=== PATIENT | female | born 1935 | race Caucasian/White ===

== ENCOUNTER → 2017-09-08 11:42 | Emergency (ER) | payer MEDICARE, MEDICAID ==
[2017-09-08 12:27] LABS: ABS Basophils 0.1 10^3/ul (0-0.2); ABS Eosinophils 0.1 10^3/ul (0-0.6); ABS Lymphocytes 0.5 10^3/ul (1.0-4.8); ABS Monocytes 0.7 10^3/ul (0-0.8); ABS Neutrophils 10.4 10^3/ul (1.5-7.7); ABS Nucleated RBC 0 10^3/ul; Eosinophil % 1.2 % (0-6); Hematocrit 37 % (35-47); Hemoglobin 11.3 g/dl (12.0-16.0); Lymphocyte % 3.9 % (25-47); Mean Corpuscular HGB Conc 31 g/dl (31-36); Mean Corpuscular Hemoglobin 24 pg (27-31); Mean Corpuscular Volume 79 fL (80-97); Mean Platelet Volume 7 um3 (7.4-10.4); Nucleated Red Blood Cells % 0; Platelet Count 408 10^3/ul (150-450); Red Blood Count 4.68 10^6/ul (4.0-5.4); Red Cell Distribution Width 18 % (10.5-15); White Blood Count 11.8 10^3/ul (3.5-10.8)
[2017-09-08 12:31] LABS: INR 0.97 (0.77-1.02)
[2017-09-08 12:40] LABS: EGFR Non-African American 76.1 (>60)
--- NOTE | 2017-09-08 13:50 | RAD ---
Indication: Fall, dementia. CT of the brain was performed without IV contrast. No prior study is available for comparison. No midline shift is noted. Central and cortical atrophy is noted. Periventricular lucency consistent with chronic ischemic White matter change is noted. Mastoid air cells and paranasal sinuses are unremarkable. IMPRESSION: Chronic ischemic White matter change. No intracranial mass or hemorrhage is noted.
--- NOTE | 2017-09-08 14:00 | RAD ---
Indication: Fall, neck injury. CT of the cervical spine was obtained in the axial plane. Sagittal and coronal reconstructed images were obtained. The skull base demonstrates no fracture. The atlantoaxial joint and a straight degenerative changes. No fracture is identified. There is disc space narrowing at C2-C3 with spondylytic ridge. No central or foraminal stenosis is noted. At C3-C4 spondylitic ridge is noted. Left uncovertebral joint hypertrophy narrows the left foramen. No central stenosis is noted. At C4-C5 no central or foraminal stenosis is noted. Right facet hypertrophy is noted. At C5-C6 degenerative disc disease with bridging syndesmophytes are noted. No central or foraminal stenosis is identified. No fracture is identified. At C6-C7 no fracture is identified. No central or foraminal stenosis is noted. At C7-T1 no fracture is identified. Incidentally noted is a thyroid nodule in the lower pole of the right lobe with calcifications. IMPRESSION: Multilevel degenerative disc disease without evidence of fracture of the cervical spine. There is an enlarged right lobe of the thyroid with calcifications and nodules noted.
--- NOTE | 2017-09-08 14:16 | RAD ---
Indication: Left wrist pain 3 views of the wrist demonstrates no fracture. Degenerative changes of the radiocarpal joint as well as the first carpal metacarpal joint is noted. Degenerative changes of the left wrist. No definite fracture is identified. IMPRESSION: Degenerative changes of the radiocarpal joint in the first carpal metacarpal joint is noted.
--- NOTE | 2017-09-08 14:18 | RAD ---
Indication: Left hand pain. 4 views of left hand demonstrates degenerative changes of the trapezium first metacarpal joint. There is a fracture at the base of the proximal phalanx of the thumb. Slight radial angulation of the distal fracture fragment is noted. IMPRESSION: Fracture through the proximal end of the proximal phalanx of the thumb.
--- NOTE | 2017-09-08 14:20 | RAD ---
Indication: Fall, left rib injury. 3 views of left ribs demonstrate no definite fracture. No other bone or joint abnormality is identified. Multiple masses are noted in the right mid and right lower lung field as well as the left lower lobe and left upper lobe. Possibility of metastatic disease should BE considered. IMPRESSION: No definite fracture of the left ribs is noted. There is likely multiple masses especially in the right lung zone and right lower lobe and in the left lower lobe. Metastatic disease should BE considered.
[2017-09-08 16:37] VITALS: BP 129/66
--- NOTE | 2017-09-09 03:05 | ED ---
Chris Man Julia, scribed for Jennifer Remy MD on 09/08/17 at 1254 . Adult Trauma - HPI Summary HPI Summary: This patient is a 82 year old F BIBA to [facility] due to a fall out of bed at [facility] this morning at about 10:00. EMS reports the patient rolled out of bed resulting in a head laceration to the left forehead and abrasion to the left wrist. The fall was assumed to be unwitnessed. EMS state that blood glucose levels usually fluctuate dramatically. Blood glucose [employer] was 300. Blood pressure was 145/76 [employer], and O2 saturation was 95%. Patient is generally non-verbal but reports not right now if asked in any pain. Patient is diabetic and demented. Patient is DNR and DNI. - History of Current Complaint Stated Complaint: HEAD LAC Hx Obtained From: EMS Hx From Patient Unobtainable Due To: Dementia Mechanism of Injury: Fall - roll out of bed Loss of Consciousness: unsure Onset/Duration: Started Hours Ago Pain Intensity: 0 Pain Scale Used: 0-10 Numeric Location: Head Aggravating Factor(s): Nothing Alleviating Factor(s): Nothing Associated Signs & Symptoms: Positive: Negative - Additional Pertinent History Primary Care Physician: [id number] - Allergy/Home Medications Allergies/Adverse Reactions: Allergies Allergy/AdvReac Type Severity Reaction Status Date / Time Codeine Allergy Unknown Verified 08/13/16 13:18 Reaction Details Lactose Intolerance (GI) Allergy Unknown Verified 08/15/16 18:02 Reaction Details PMH/Surg Hx/FS Hx/Imm Hx Endocrine/Hematology History: Reports: Hx Diabetes Denies: Hx Anticoagulant Therapy, Hx Thyroid Disease Cardiovascular History: Reports: Hx Angina, Hx Hypotension, Hx Hypertension Denies: Hx Coronary Artery Disease, Hx Hypercholesterolemia, Hx Myocardial Infarction, Hx Pacemaker/ICD, Hx Valvular Heart Disease Respiratory History: Reports: Hx Chronic Obstructive Pulmonary Disease (COPD), Hx Pneumonia Denies: Hx Asthma GI History: Denies: Other GI Disorders History: Reports: Other Problems/Disorders - 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 dementia per son, Hx Migraine Denies: Hx Seizures Psychiatric History: Reports: Hx Depression Denies: Hx Substance Abuse - Surgical History Surgery Procedure, Year, and Place: Left hip replacement. x 3. Hysterectomy Hx Anesthesia Reactions: Yes - nausea/vomiting - Immunization History Date of Tetanus Vaccine: Up to date, check with Dr Carroll's office Date of Influenza Vaccine: 2015 Infectious Disease History: Denies: Hx Hepatitis, Hx Human Immunodeficiency Virus (HIV) - Family History Known Family History: Positive: Diabetes - Social History Lives: At [facility] Alcohol Use: None Substance Use Type: Reports: None Hx Tobacco Use: Yes Smoking Status (MU): Former Smoker Type: Cigarettes Amount Used/How Often: 1 ppd Length of Time of Smoking/Using Tobacco: 57 years Have You Smoked in the Last Year: Yes Review of Systems Positive: Other - elevated glucose Positive: Other - laceration to L forehead and abrasion to L wrist All Other Systems Reviewed And Are Negative: Yes Physical Exam - Summary Physical Exam Summary: Appearance: Ill-appearing, moderate pain distress, cachectic, smiles Skin: Warm, color reflects adequate perfusion Head: 3cm laceration to L forehead Eyes: Conjunctiva clear ENT: Normal inspection Neck: Supple, no nodes, no JVD. Respiratory: Lungs clear, Normal breath sounds, no respiratory distress Cardio: RRR, No murmur, pulses normal, brisk capillary refill Abdomen: soft, nontender, wearing Depends with formed brown stool Bowel sounds: present Musculoskeletal: Strength Intact/ ROM intact. No calf tenderness. No edema. L anterior shoulder and L lower rib ecchymosis, L wrist abrasion and deformity. Stage 4 Decubitus ulcer [id number] at sacrum with DuoDERM that is soiled and coming off Neuro: Alert, muscle tone normal, facial symmetry, speech normal, sensory/motor intact Psychological: Normal Triage Information Reviewed: Yes Vital Signs On Initial Exam: Initial Vitals Temp Pulse Resp BP Pulse Ox 98.6 F 100 14 135/66 96 09/08/17 11:43 09/08/17 11:43 09/08/17 11:43 09/08/17 11:43 09/08/17 11:43 Vital Signs Reviewed: Yes Procedures - Splinting Location: L Thumb Pre-Made Type: velcro Splint: thumb spica Pre-Proc Neuro Vasc Exam: normal Post-Proc Neuro Vasc Exam: normal - Laceration/Wound Repair 1 Location: head - L forehead Description: Linear Anesthesia: Local, 1.0%, Lido Length, Depth and Shape: 3cm by 0.5cm by 2mm Betadine Prep?: Yes Irrigated w/ Saline (ccs): 50 Laceration/Wound Explored: clean Closure: Single Layer Debridement: none Suture Type: Nylon Number of Sutures: 3 Layer Closure?: No Sterile Dressing Applied?: Yes Diagnostics - Vital Signs Vital Signs Temp Pulse Resp BP Pulse Ox 09/08/17 16:36 97.5 F 90 15 129/66 95 09/08/17 16:30 96 129/66 93 09/08/17 16:00 91 115/63 93 09/08/17 15:30 97 130/59 93 09/08/17 15:00 94 124/54 93 09/08/17 14:57 96 129/55 94 09/08/17 14:00 93 92 09/08/17 13:16 100 92 09/08/17 12:08 107 93 09/08/17 12:06 135/66 09/08/17 11:43 98.6 F 100 14 135/66 96 - Laboratory Lab Results: Lab Results 09/08/17 09/08/17 09/08/17 Range/Units 12:19 12:19 12:19 WBC 11.8 H (3.5-10.8) 10^3/ul RBC 4.68 (4.0-5.4) 10^6/ul Hgb 11.3 L (12.0-16.0) g/dl Hct 37 (35-47) % MCV 79 L (80-97) fL MCH 24 L (27-31) pg MCHC 31 (31-36) g/dl RDW 18 H (10.5-15) % Plt Count 408 (150-450) 10^3/ul MPV 7 L (7.4-10.4) um3 Neut % (Auto) 88.2 H (38-83) % Lymph % (Auto) 3.9 L (25-47) % [place] % (Auto) 6.3 (1-9) % Eos % (Auto) 1.2 (0-6) % Baso % (Auto) 0.4 (0-2) % Absolute Neuts (auto) 10.4 H (1.5-7.7) 10^3/ul Absolute Lymphs (auto) 0.5 L (1.0-4.8) 10^3/ul Absolute Monos (auto) 0.7 (0-0.8) 10^3/ul Absolute Eos (auto) 0.1 (0-0.6) 10^3/ul Absolute Basos (auto) 0.1 (0-0.2) 10^3/ul Absolute Nucleated RBC 0 10^3/ul Nucleated RBC % 0 INR (Anticoag Therapy) 0.97 (0.77-1.02) Sodium 132 L (133-145) mmol/L Potassium 4.5 (3.5-5.0) mmol/L Chloride 98 L (101-111) mmol/L Carbon Dioxide 29 (22-32) mmol/L Anion Gap 5 (2-11) mmol/L BUN 50 H (6-24) mg/dL Creatinine 0.73 (0.51-0.95) mg/dL Est GFR ( Amer) 97.9 (>60) Est GFR (Non-Af Amer) 76.1 (>60) BUN/Creatinine Ratio 68.5 H (8-20) Glucose 212 H (70-100) mg/dL Lactic Acid (0.5-2.0) mmol/L Calcium 10.9 H (8.6-10.3) mg/dL Total Bilirubin 0.20 (0.2-1.0) mg/dL AST 7 L (13-39) U/L ALT 6 L (7-52) U/L Alkaline Phosphatase 78 (34-104) U/L Troponin I 0.00 (<0.04) ng/mL Total Protein 6.2 L (6.4-8.9) g/dL Albumin 2.8 L (3.2-5.2) g/dL Globulin 3.4 (2-4) g/dL Albumin/Globulin Ratio 0.8 L (1-3) 09/08/17 Range/Units 12:19 WBC (3.5-10.8) 10^3/ul RBC (4.0-5.4) 10^6/ul Hgb (12.0-16.0) g/dl Hct (35-47) % MCV (80-97) fL MCH (27-31) pg MCHC (31-36) g/dl RDW (10.5-15) % Plt Count (150-450) 10^3/ul MPV (7.4-10.4) um3 Neut % (Auto) (38-83) % Lymph % (Auto) (25-47) % [place] % (Auto) (1-9) % Eos % (Auto) (0-6) % Baso % (Auto) (0-2) % Absolute Neuts (auto) (1.5-7.7) 10^3/ul Absolute Lymphs (auto) (1.0-4.8) 10^3/ul Absolute Monos (auto) (0-0.8) 10^3/ul Absolute Eos (auto) (0-0.6) 10^3/ul Absolute Basos (auto) (0-0.2) 10^3/ul Absolute Nucleated RBC 10^3/ul Nucleated RBC % INR (Anticoag Therapy) (0.77-1.02) Sodium (133-145) mmol/L Potassium (3.5-5.0) mmol/L Chloride (101-111) mmol/L Carbon Dioxide (22-32) mmol/L Anion Gap (2-11) mmol/L BUN (6-24) mg/dL Creatinine (0.51-0.95) mg/dL Est GFR ( Amer) (>60) Est GFR (Non-Af Amer) (>60) BUN/Creatinine Ratio (8-20) Glucose (70-100) mg/dL Lactic Acid 1.8 (0.5-2.0) mmol/L Calcium (8.6-10.3) mg/dL Total Bilirubin (0.2-1.0) mg/dL AST (13-39) U/L ALT (7-52) U/L Alkaline Phosphatase (34-104) U/L Troponin I (<0.04) ng/mL Total Protein (6.4-8.9) g/dL Albumin (3.2-5.2) g/dL Globulin (2-4) g/dL Albumin/Globulin Ratio (1-3) Result Diagrams: 09/08/17 12:19 09/08/17 12:19 Lab Statement: Any lab studies that have been ordered have been reviewed, and results considered in the medical decision making process. - Radiology L Wrist Radiology Interpretation Completed By: Radiologist - Degenerative changes of the radiocarpal joint in the first carpal metacarpal joint is noted. ED Physician has reviewed this report. CXR w/ Ribs Radiology Interpretation Completed By: Radiologist - No definite fracture of the left ribs is noted. There is likely multiple masses especially in the right lung zone and right lower lobe and in the left lower lobe. Metastatic disease should BE considered. ED Physician has reviewedt this report. L Hand Radiology Interpretation Completed By: Radiologist - Fracture through the proximal end of the proximal phalanx of the thumb.ED Physician has reviewed this report. - CT Brain CT Interpretation Completed By: Radiologist - Chronic ischemic White matter change. No intracranial mass or hemorrhage is noted. ED Physician has reviewed this report. C-Spine CT Interpretation Completed By: Radiologist - Multilevel degenerative disc disease without evidence of fracture of the cervical spine. There is an enlarged right lobe of the thyroid with calcifications and nodules noted. ED Physician has reviewed this report. - EKG 12:05 Cardiac Rate: Tachycardia EKG Rhythm: Sinus Tachycardia - at [address] Segment: Non-Specific Ectopy: None EKG Interpretation: nml AVCT prolonged IVCT in RBBB pattern normal QTc normal axis EKG Comparison: No Significant Change - to 08/14/16 Adult Trauma Course/Dx - Diagnoses Provider Diagnoses: Fracture of thumb, left, closed, Fall, Renal insufficiency, Hyperglycemia, Elevated BUN, Hypercalcemia, Laceration of forehead without complication Discharge - Discharge Plan Condition: Stable Disposition: HOME Patient Education Materials: Care For Your Stitches (ED), Laceration (ED), Thumb Fracture (ED) Referrals: Lee Beltran MD [Medical Doctor] - 3 Days (for further evaluation of thumb fracture ) Kuldeep Carroll MD [Primary Care Provider] - Additional Instructions: Wear the splint on your left thumb until seen by orthopedics. You have 3 sutures. They should be removed in 5-7 days. Change the bandage daily. Watch for infection. Your chest xray and labs have some abnormalities that can be followed up on by your doctor. Return to the ER if you have any new or worsening symptoms. The documentation as recorded by the scribe, Roetzer,Amanda accurately reflects the service I personally performed and the decisions made by me, Jennifer Remy MD.
== END | disposition home or self-care (01) ==
LOC: ED 11:42
DX: S62.502A Fracture of unspecified phalanx of left thumb, initial encounter for closed fracture (principal); S01.81XA Laceration without foreign body of other part of head, initial encounter; R73.9 Hyperglycemia, unspecified; E83.52 Hypercalcemia; W19.XXXA Unspecified fall, initial encounter; Y92.9 Unspecified place or not applicable; N28.9 Disorder of kidney and ureter, unspecified
CPT/HCPCS: 12002; 36415; 70450; 72125; 80053; 83605; 84484; 85025; 85610; 93005; 99284